=== PATIENT | female | born 1980 | race Two or more races ===

== ENCOUNTER 2016-09-01 09:21 | Emergency (ER) | payer OTHER ==
[2016-09-01 09:31] VITALS: TEMP 98; BMI 26.6
--- NOTE | 2016-09-01 10:08 | PDOC ---
History of Present Illness - General History Source: Patient, Family Exam Limitations: No Limitations - History of Present Illness Initial Comments: 09/01/16 11:17 The patient is a 35 year old female presenting with her boyfriend, with a significant past medical history of Depression, anxiety and suicidal attempts, who presents to the emergency department for psychiatric evaluation. She reports that she has been feeling depressed and wants to kill herself but hasn t done so because she doesnt want to hurt her family with her actions. She notes that if she attempts suicide it would be by overdosing on medications. She reports that she did take 1 pill of rat poison yesterday without any adverse affects. She states that she has had previous suicide attempts in the past, roughly 3 years ago which involved overdosing on pills and cutting her wrists. After this attempt she started seeing a psychiatrist and began to use anti depression medications. Roughly over a year ago she stopped seeing the psychiatrist and stopped taking any kind of medications. She denies any homicidal ideation. The patient denies chest pain, shortness of breath, headache and dizziness. Denies fever, chills, nausea, vomit, diarrhea and constipation. Denies dysuria, frequency, urgency and hematuria. LMP: Started yesterday Allergies: None Past surgical history: None reported Social history: She denies tobacco, alcohol or drug use reported. Patient has 3 young children. <Lyndon Rae - Last Filed: 09/01/16 11:17> <Frankie Meade - Last Filed: 09/01/16 13:27> - General Chief Complaint: Suicidal Stated Complaint: PRESSURE PROBLEM Time Seen by Provider: 09/01/16 09:32 Past History <Lyndon Rae - Last Filed: 09/01/16 11:17> - Past Medical History Asthma: No Cancer: No Cardiac Disorders: No Diabetes: No HTN: No Psychiatric Problems: Yes (depression) Seizures: No Thyroid Disease: No - Psycho/Social/Smoking Cessation Hx Anxiety: No Suicidal Ideation: No Smoking History: Never smoked Have you smoked in the past 12 months: No Information on smoking cessation initiated: No Hx Alcohol Use: No Drug/Substance Use Hx: No Substance Use Type: None Hx Substance Use Treatment: No <Frankie Meade - Last Filed: 09/01/16 13:27> - Past Medical History Allergies/Adverse Reactions: Allergies Allergy/AdvReac Type Severity Reaction Status Date / Time No Known Allergies Allergy Verified 09/01/16 09:22 Home Medications: Ambulatory Orders Escitalopram Oxalate [Lexapro -] 10 mg PO DAILY #30 tablet 09/01/16 Review of Systems - Review of Systems Constitutional: No: Chills, Fever Respiratory: No: Cough, Shortness of Breath Cardiac (ROS): No: Chest Pain, Palpitations, Syncope ABD/GI: Yes: Diarrhea, Nausea. No: Vomiting : No: Hematuria Musculoskeletal: No: Muscle Pain Neurological: No: Headache Psychiatric: Yes: Anxiety, Depression All Other Systems: Reviewed and Negative <Frankie Meade - Last Filed: 09/01/16 13:27> *Physical Exam - Vital Signs Last Vital Signs Temp Pulse Resp BP Pulse Ox 98.0 F 116 H 16 138/85 100 09/01/16 09:25 09/01/16 09:25 09/01/16 09:25 09/01/16 09:25 09/01/16 09:25 - Physical Exam Comments: 09/01/16 11:18 GENERAL: The patient is awake, alert, and fully oriented, in no acute distress. HEAD: Normal with no signs of trauma. EYES: Pupils equal, round and reactive to light, extraocular movements intact, sclera anicteric, conjunctiva clear with no pallor. ENT: Ears normal, nares patent, oropharynx clear without exudates. Moist mucous membranes. NECK: Normal range of motion, supple without lymphadenopathy, JVD, or masses. LUNGS: Breath sounds equal, clear to auscultation bilaterally. No wheeze/ crackles. HEART: Regular rate and rhythm, normal S1 and S2 without murmur or rub. ABDOMEN: Soft/nontender/nondistended. BS wnl. No guarding or rebound. No palpable masses. No hepatosplenomegaly. EXTREMITIES: Normal range of motion, no edema. No clubbing or cyanosis. No cords , erythema, or tenderness. NEUROLOGICAL: Cranial nerves II through XII grossly intact. Normal speech, normal gait. PSYCH: Normal mood, normal affect. SKIN: Warm, Dry, normal turgor, no rashes or lesions noted. <Lyndon Rae - Last Filed: 09/01/16 11:17> - Vital Signs Last Vital Signs Temp Pulse Resp BP Pulse Ox 98.0 F 116 H 16 138/85 100 09/01/16 09:25 09/01/16 09:25 09/01/16 09:25 09/01/16 09:25 09/01/16 09:25 <Frankie Meade - Last Filed: 09/01/16 13:27> Heart Score/ECG Review #1 ECG reviewed & interpreted by me at: 10:33 General ECG Interpretation: Sinus Rhythm, Normal Rate (80), Normal Intervals ( qrs 82, qtc 410), No acute ischemic changes <Frankie Meade - Last Filed: 09/01/16 13:27> ED Treatment Course - LABORATORY CBC & Chemistry Diagram: 09/01/16 10:17 09/01/16 10:17 - ADDITIONAL ORDERS Additional order review: 09/01/16 10:17 RBC 4.86 MCV 83.9 MCHC 34.0 RDW 13.3 D MPV 7.8 D Neutrophils % 69.4 Lymphocytes % 21.8 Monocytes % 7.9 Eosinophils % 0.4 D Basophils % 0.5 <Lyndon Rea - Last Filed: 09/01/16 11:17> - LABORATORY CBC & Chemistry Diagram: 09/01/16 10:17 09/01/16 10:17 <Frankie Meade - Last Filed: 09/01/16 13:27> Medical Decision Making - Medical Decision Making 09/01/16 10:18 A portion of this note was documented by scribe services under my direction. I have reviewed the details of the note, within reason, and agree with the documentation with the following case summary and management plan written by me. 35-year-old female with history of depression, required admission to [facility] in 2013 for suicidal attempt involving overdose and cutting wrists, was maintained on antidepressants after that until about one year ago, when she stopped her medications secondary to insurance reasons. Patient presents today for several weeks/months of worsening depression and suicidal ideations with plan of overdosing again. Pt does not want to follow through with her plan because of her family/children, and last night she took one pill of a rodent repellent (unknown name). She has no complaints since that ingestion, but presents today for help accompanied by her . Vital signs are within normal limits, slightly tachycardic at triage but 80s on my physical exam Exam is nonfocal and normal, no evidence of bleeding or bruising 35-year-old female with history of depression and suicide attempt requiring admission presents now with suicidal ideations and essentially an attempt last night by taking an unknown substance. She is hemodynamically stable and physically well appearing, but is tearful during exam. Will check labs, EKG, toxicology levels Psychiatry consult and likely transfer/admission 09/01/16 13:17 Labs are within normal limits, tox screen is negative, coags are normal. Seen and evaluated by Dr. Jones of psychiatry, feels patient is safe for discharge given her desire to not act on her ideations. Will restart antidepressants given success in the past, recommends Lexapro 10 mg daily. Patient and agree with plan, patient states she primarily wanted to restart medications and has no intentions of carrying out her previous thoughts. Understands return criteria particularly persistence of symptoms especially within the next 10-14 days. <Frankie Meade - Last Filed: 09/01/16 13:27> *DC/Admit/Observation/Transfer - Attestations Scribe Attestion: 09/01/16 11:18 Documentation prepared by Lyndon Rae, acting as medical scheduler for Frankie Meade MD <Lyndon Rae - Last Filed: 09/01/16 11:17> <Frankie Meade - Last Filed: 09/01/16 13:27> Diagnosis at time of Disposition: Suicidal ideations - Discharge Dispostion Disposition: HOME Condition at time of disposition: Improved - Prescriptions Prescriptions: Escitalopram Oxalate [Lexapro -] 10 mg PO DAILY #30 tablet - Referrals Referrals: Mitzi Jones MD [Staff Physician] - - Patient Instructions Printed Discharge Instructions: DI for Suicidal Ideation-Adult Additional Instructions: Activity as tolerated. Stay hydrated. Blood tests today showed no acute abnormalities. As discussed, start the Lexapro daily as prescribed. Pay close attention to your symptoms: if you continue to have ANY thoughts of hurting yourself or others, return immediately to the emergency department. Continue your medications as previously prescribed by your physician. You should follow up with your primary doctor and a psychiatrist as soon as possible regarding today's emergency department visit. Consider calling Dr. Jones, otherwise call the Medicaid office and have them assist you with a psychiatrist in the area. Return to the emergency department for any new or concerning symptoms, particularly thoughts of hurting herself or others, vomiting or bloody stool, bruising or bleeding, fevers or chills.
[2016-09-01 10:53] LABS: BASOPHIL 0.5 % (0-2.0); EOSINOPHIL 0.4 % (0-4.5); MCH 28.5 pg (25.7-33.7); MEAN CELL VOLUME 83.9 fl (80-96); MEAN PLT VOLUME 7.8 fl (7.5-11.1); NEUTROPHILS 69.4 % (42.8-82.8); PLATELET COUNT 269 K/MM3 (134-434); RDW 13.3 % (11.6-15.6); WHITE BLOOD COUNT 9.4 K/mm3 (4.0-10.0)
[2016-09-01 11:18] LABS: INR 1.17 (0.82-1.09); PROTHROMBIN TIME (PATIENT) 12.9 SEC (9.98-11.88)
[2016-09-01 11:20] LABS: ACTIVATED PTT 29.9 SECONDS (26.9-34.4)
[2016-09-01 11:22] LABS: TROPONIN I < 0.02 ng/ml (0.00-0.05)
[2016-09-01 11:28] LABS: ALCOHOL < 5.0 mg/dl (0-5)
[2016-09-01 11:30] LABS: ALBUMIN 3.9 g/dl (3.4-5.0); ALK PHOS 87 U/L (45-117); ANION GAP 10 (8-16); BILIRUBIN,TOTAL 0.8 mg/dL (0.2-1.0); CALCIUM 8.9 mg/dL (8.5-10.1); CO2 26 mmol/L (21-32); CREATININE 0.4 mg/dL (0.55-1.02); GLUCOSE,RANDOM 94 mg/dL (74-106); SGOT/AST 13 U/L (15-37); SGPT/ALT 29 U/L (12-78); TOT PROT 7.5 g/dl (6.4-8.2)
[2016-09-01 11:32] LABS: SALICYLATE < 4.0 mg/dl (0.0-30.0)
[2016-09-01 11:56] LABS: URINE MARIJUANA THC NEGATIVE ng/ml (CUTOFF=50)
--- NOTE | 2016-09-01 11:56 | CON.PSY ---
Psychiatry Consult Chief Complaint: feeling dfepressed, I dont want to kill mysalf. Symptoms: reports: Depressed Mood - Previous Psychiatric Treatment Outpatient: None Inpatient: One prior admission - Previous Substance Abuse Treatment Outpatient: None - Reason for Previous Treatment Reason for Previous Treatment: Major Depression - Allergies Allergies: Allergies Allergy/AdvReac Type Severity Reaction Status Date / Time No Known Allergies Allergy Verified 09/01/16 09:22 - Current Living Status Usual Living Arrangement: With Spouse - Current Mental Status Evaluation Appearance: Well Groomed Attitude: Cooperative - Affect Affect: Constrictive Appropriateness: Appropriate to Content - Mood Mood: Depressed - Speech/Language Expressive: Coherent - Psychomotor Activity Psychomotor Activity: Slowed - Thought Process Thought Process: Intact - Thought Content Hallucinations: Absent Delusions: Absent - Cognition Attention: Alert Orientation: Time Memory, Immediate Recall: Intact - Concentration Serial Sevens Intact: No Simple Calculations Intact: No - Abstraction Proverb Interpretation: Intact Judgement: Intact - Insight Insight: Intact - Impulse Control Impulse Control: Good Control - Suicidal Ideation Suicidal Ideation: No - Homicidal Ideation Homicidal Ideation: No Assessment/Plan lexapro 10mg po opd.
[2016-09-01 13:42] VITALS: BP 126/75; PULSE 82
--- NOTE | 2016-09-01 14:39 | EKG ---
Test Reason : Blood Pressure : / mmHG Vent. Rate : 080 BPM Atrial Rate : 080 BPM P-R Int : 142 ms QRS Dur : 082 ms QT Int : 356 ms P-R-T Axes : 035 034 030 degrees QTc Int : 410 ms NORMAL SINUS RHYTHM NORMAL ECG NO PREVIOUS ECGS AVAILABLE Confirmed by HAILEY VANEGAS MD ([id number]) on 09/01/2016 2:38:25 PM Referred By: Confirmed By:HAILEY VANEGAS MD
== END 2016-09-01 13:41 | disposition home or self-care (01) ==
LOC: JER 09:21
DX: R45.851 Suicidal ideations (principal); F41.8 Other specified anxiety disorders; Z91.5 Personal history of self-harm
CPT/HCPCS: 36415; 80053; 80307; 81003; 82550; 84484; 84703; 85025; 85610; 85730; 93005; 93010; 99283-25